=== PATIENT | female | born 2000 | race Caucasian/White ===

== ENCOUNTER → 2020-05-25 | Outpatient (CLI) | payer OTHER ==
[2020-05-25 15:57] LABS: SWEAT TEST LFT ARM 64.1 MEQ CL/L (0.0-40.0); SWEAT TEST RT ARM 67.9 MEQ CL/L (0.0-40.0); WEIGHT OF SWEAT LFT ARM 41.7 MG; WEIGHT OF SWEAT RT ARM 64.7 MG
== END ==
LOC: M LAB 09:44
PROVIDERS: ATTEND Internal Medicine Pulmonary Disease
DX: E84.9 Cystic fibrosis, unspecified (principal)